=== PATIENT | female | born 1945 | race Caucasian/White ===

== ENCOUNTER 2022-04-15 19:11 | Emergency (ER) | payer MEDICARE, OTHER ==
[~2022-04-15] VITALS: Ht 160 cm; Wt 56.7 kg
--- NOTE | 2022-04-15 20:00 | NUR ---
TO ER BED 1. LUIS FROM [facility] FOR WEAKNESS X 2 DAYS. PT IS ALERT AND ORIENTED. RR EVEN AND NON LABORED. R ARM WEAKNESS NOTED 2 DAYS AGO BY PT. 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 UNABLE TO LIFT R ARM. PT DENIES ANY TRAUMA. CONNECTED TO POX AND HEART MINITOR. VITAL SIGNS WITHIN LIMITS.
--- NOTE | 2022-04-15 20:03 | NUR ---
BLOOD COLLECTED AND SENT TO LAB
--- NOTE | 2022-04-15 20:03 | NUR ---
IV LINE ESTABLISHED, [id number]
[2022-04-15 20:22] LABS: BASOPHILS # (AUTO) 0.1 K/uL (0.0-0.2); BASOPHILS % (AUTO) 1.1 % (0.0-2.0); EOSINOPHILS % (AUTO) 0.8 % (0.0-6.0); HEMATOCRIT 43 % (33-45); HEMOGLOBIN 14.5 g/dL (11.5-14.8); LYMPHOCYTES # (AUTO) 2.8 K/uL (0.8-4.8); LYMPHOCYTES % (AUTO) 25.8 % (20.0-44.0); MEAN CORPUSCULAR HGB CONC 34 g/dl (31.0-36.0); MEAN CORPUSCULAR VOLUME 90 fL (82-100); MONOCYTES # (AUTO) 0.8 K/uL (0.1-1.30); MONOCYTES % (AUTO) 7.5 % (2.0-12.0); NEUTROPHILS # (AUTO) 7.1 K/uL (1.8-8.9); NEUTROPHILS % (AUTO) 64.8 % (43.0-81.0); PLATELET COUNT (AUTO) 228 K/uL (150-450)
[2022-04-15 20:28] LABS: CALCIUM, SERUM 9.2 mg/dL (8.5-10.1); CARBON DIOXIDE 28 mmol/L (21-32); CHLORIDE 104 mmol/L (98-107); CREATININE 1.1 mg/dL (0.6-1.3); GLUCOSE 167 mg/dL (74-106); POTASSIUM 4.3 mmol/L (3.5-5.1); SODIUM SERUM 138 mmol/L (136-145); UREA NITROGEN, BLOOD 33 mg/dL (7-18)
--- NOTE | 2022-04-15 22:48 | NUR ---
COVID SWAB COLLECTED
--- NOTE | 2022-04-16 05:50 | NUR ---
PT ACCEPTED TO [facility] BY DR CHEEMA. AUTH# FOR TRANSPORT [id number]
--- NOTE | 2022-04-16 06:04 | NUR ---
PT WILL BE TRANSPORTED TO [place] IN 2 TO 3 HOURS VIA [facility].
--- NOTE | 2022-04-16 06:32 | NUR ---
CALLED [facility] #[phone], THEY WANT REPORT UNTIL NEXT SHIFT
[2022-04-16 07:22] VITALS: BP 176/81
--- NOTE | 2022-04-16 07:44 | NUR ---
MAY REFERRAL CLERK [phone]
--- NOTE | 2022-04-16 08:45 | NUR ---
ATTEMPTING TO GIVE REPORT, NO ANSWER
--- NOTE | 2022-04-16 09:08 | NUR ---
[facility] ER [phone] WAS ASKED TO CALL BACK IN 20 MINS FOR REPORT.
--- NOTE | 2022-04-16 09:23 | NUR ---
REPORT GIVEN TO ER PORTRAIT PAINTER
--- NOTE | 2022-04-16 09:24 | NUR ---
PICKED UP BY TRANSPORT IN STABLE CONDITION
== END 2022-04-16 09:37 | disposition short-term general hospital (02) ==
LOC: ER 19:18
DX: R53.1 Weakness (principal); G35 Multiple sclerosis; Z20.822 Contact with and (suspected) exposure to COVID-19; I10 Essential (primary) hypertension; E78.00 Pure hypercholesterolemia, unspecified
CPT/HCPCS: 99285; 70450; 71045; 87426; 93005; 85025; 80048; 36415; 84484 ×2; 87081; J7030; C9803